=== PATIENT | female | born 1970 | race Caucasian/White ===

== ENCOUNTER 2020-03-06 12:48 | Emergency (ER) | payer SELFPAY ==
[~2020-03-06] VITALS: Ht 172.7 cm; Wt 54.4 kg
[2020-03-06 13:04] VITALS: Ht 172.7 cm; Wt 54.4 kg
[2020-03-06 13:59] VITALS: BP 128/88
== END 2020-03-06 14:00 | disposition home or self-care (01) ==
LOC: ED 12:48
DX: S60.221A Contusion of right hand, initial encounter (principal); W23.0XXA Caught, crushed, jammed, or pinched between moving objects, initial encounter; Y93.89 Activity, other specified; Y92.89 Other specified places as the place of occurrence of the external cause; Y99.8 Other external cause status
CPT/HCPCS: 90715; A4570; Q0092